=== PATIENT | female | born 1980 | race Hispanic/Latino ===

== ENCOUNTER 2018-12-17 14:17 | Emergency (ER) | payer SELFPAY ==
[~2018-12-17] VITALS: Ht 170.2 cm; Wt 72.6 kg
[2018-12-17] MEDS ORDERED: NORCO 10-325 T1 EACH PO (17:14)
[2018-12-17] MEDS ORDERED: PROMETHAZINE HC25 M1 PO (17:14)
[2018-12-17] MEDS ORDERED: FLOMAX0.4 MG PO (17:14)
== END 2018-12-17 17:50 | disposition home or self-care (01) ==
LOC: ED 14:17
DX: N13.2 Hydronephrosis with renal and ureteral calculous obstruction (principal)
CPT/HCPCS: 74176; 81001; 84703; 96374; 96375; 96376; 99284-25; J1170; J1885; J2405